=== PATIENT | female | born 1940 | race Caucasian/White ===

== ENCOUNTER → 2016-08-11 | Outpatient (CLI) | payer MEDICARE ==
--- NOTE | 2016-08-11 10:17 | ECHOS ---
DATE OF SERVICE: 08/11/2016 AGE: 76Y SEX: F HT: 62" WT: 108 lbs. Protocol Fercho: X Others: Stress Echo Stage: 3 Dur. of Exercise: 6:30 *Heart Rate Blood Pressure *Rest: 66 Rest: 148/86 * *Max. Achieved: 118 Maximum BP: 150/77 85% PMHR: 123 100% PMHR: 145 *METS: 6.8 INDICATIONS: Chest pain. MEDICATIONS: Simvastatin, Enalapril, Vicodin, omeprazole, aspirin. STRESS DATA: Pretesting physical examination showed heart rate of 66, pressure is 148/86 mmHg. Baseline EKG shows sinus rhythm with nonspecific changes in the inferolateral leads. The patient exercised on the treadmill according to Fercho protocol for a total of 6 minutes and 30 seconds and achieved 6.8 METs with max heart rate was 118 beats per minutes which is about 81% of maximum predicted heart rate. Maximum blood pressure was 150/77 mmHg. Clinically, the patient did not have any chest pain or discomfort, but she developed shortness of breath in response to exercise. The EKG showed about [address] segment changes, which likely represents the worsening of the baseline EKG changes. ECHOCARDIOGRAM: On echocardiogram images on parasternal long axis views, parasternal short axis view, apical 4 chamber view, and apical 2 chamber view were obtained at the baseline, at the peak of the heart rate as well as on recovery and the echocardiogram images did not show any evidence of wall motion abnormalities consistent with ischemia. CONCLUSION: 1. Average exercise capacity. 2. Mild EKG changes in response to exercise likely represent the worsening of the baseline EKG changes. 3. Normal echocardiogram in response to exercise.
== END | disposition home or self-care (01) ==
LOC: RADNMMAIN 09:08
PROVIDERS: ATTEND Family Medicine
DX: R94.31 Abnormal electrocardiogram [ECG] [EKG] (principal)
CPT/HCPCS: 93017; 93350

== ENCOUNTER → 2017-03-25 | Outpatient (CLI) | payer MEDICARE ==
--- NOTE | 2017-03-29 11:38 | MM ---
Reason for exam: screening (asymptomatic). Last mammogram was performed 1 year and 5 months ago. History: US discontinued breast bx RT of the right breast, November 08, 2014. Took estrogen for 10 years. Physical Findings: A clinical breast exam by your physician is recommended on an annual basis and results should be correlated with mammographic findings. MG 3D Screening Mammo W/Cad Bilateral CC and MLO view(s) were taken. Prior study comparison: October 30, 2015, bilateral MG 3d diag mammo w/cad [facility]. October 23, 2014, mammogram, performed at [facility]. There are scattered fibroglandular densities. Finding: There are typically benign round calcifications in the right breast. Asymmetric breast tissue in the right posterior breast, stable. There is no discrete abnormality. ASSESSMENT: Benign, BI-RAD 2 RECOMMENDATION: Routine screening mammogram of both breasts in 1 year.
== END | disposition home or self-care (01) ==
LOC: RADMAMWWP 13:53
PROVIDERS: ATTEND Family Medicine
DX: Z12.31 Encounter for screening mammogram for malignant neoplasm of breast (principal)
CPT/HCPCS: 77063; G0202

== ENCOUNTER → 2017-11-23 | Outpatient (CLI) | payer MEDICARE ==
[~2017-11-23] MED LIST: DENOSUMAB 60 MG/ML 1 ML SYRINGE SQ ONE
[2017-11-23 11:00] VITALS: BP 117/53; PULSE 61; RESP 16; TEMP 97.9
== END ==
LOC: PROCWHC3 10:41
PROVIDERS: ATTEND Nurse Practitioner Adult Health
DX: M81.0 Age-related osteoporosis without current pathological fracture (principal)
CPT/HCPCS: 96372; J0897

== ENCOUNTER → 2018-04-05 | Outpatient (CLI) | payer MEDICARE ==
--- NOTE | 2018-04-06 12:11 | ECHOF ---
Referral Reason:R79.89 other specified abnormal findings of lab results MEASUREMENTS -------- HEIGHT: 157.5 cm WEIGHT: 48.5 kg BP: RVIDd: 2.7 cm (< 3.3) IVSd: 1.2 cm (0.6 - 1.1) LVIDd: 4.2 cm (3.9 - 5.3) LVPWd: 1.2 cm (0.6 - 1.1) IVSs: 1.6 cm LVIDs: 2.8 cm LVPWs: 1.8 cm LAESV Index (A-L): 24.15 ml/m Ao Diam: 3.2 cm (2.0 - 3.7) AV Cusp: 2.2 cm (1.5 - 2.6) LA Diam: 4.1 cm (2.7 - 3.8) MV EXCURSION: 13.970 mm (> 18.000) MV EF SLOPE: 35 mm/s (70 - 150) EPSS: 1.3 cm MV E Mohan: 0.47 m/s MV DecT: 273 ms MV A Mohan: 0.93 m/s MV E/A Ratio: 0.50 RAP: 5.00 mmHg RVSP: 26.36 mmHg FINDINGS -------- Sinus rhythm. Resting bradycardia (HR<60bpm). This was a technically good study. The left ventricular size is normal. There is borderline concentric left ventricular hypertrophy. Overall left ventricular systolic function is low-normal with, an EF between 50 - 55 %. The right ventricle is normal in size and function. Normal LA size by volume 22+/-6 ml/m2. The right atrium is normal in size. Lumason used to rule out clot in LV apex. No clot seen. The aortic valve is trileaflet and appears structurally normal. There is trace mitral regurgitation. Mild tricuspid regurgitation present. The right ventricular systolic pressure, as measured by Doppl er, is 26.36mmHg. Moderate pulmonic regurgitation. The aortic root size is normal. Normal inferior vena cava with normal inspiratory collapse consistent with estimated right atrial pre ssure of 5 mmHg. The pericardium is normal. CONCLUSIONS -------- 1. Sinus rhythm. 2. Resting bradycardia (HR<60bpm). 3. This was a technically good study. 4. The left ventricular size is normal. 5. There is borderline concentric left ventricular hypertrophy. 6. Overall left ventricular systolic function is low-normal with, an EF between 50 - 55 %. 7. The right ventricle is normal in size and function. 8. Normal LA size by volume 22+/-6 ml/m2. 9. The right atrium is normal in size. 10. Lumason used to rule out clot in LV apex. No clot seen. 11. The aortic valve is trileaflet and appears structurally normal. 12. There is trace mitral regurgitation. 13. Mild tricuspid regurgitation present. 14. The right ventricular systolic pressure, as measured by Doppler, is 26.36mmHg. 15. Moderate pulmonic regurgitation. 16. The aortic root size is normal. 17. Normal inferior vena cava with normal inspiratory collapse consistent with estimated right atrial pressure of 5 mmHg. 18. The pericardium is normal. SCALE INSTALLER: Christina Navarrete RDCS
== END ==
LOC: RADECHMAIN 12:49
PROVIDERS: ATTEND Family Medicine
DX: I37.1 Nonrheumatic pulmonary valve insufficiency (principal)
CPT/HCPCS: C8929; Q9950; 93306

== ENCOUNTER → 2018-09-18 | Outpatient (CLI) | payer MEDICARE ==
--- NOTE | 2018-09-19 07:26 | US ---
EXAMINATION TYPE: US kidneys/renal and bladder DATE OF EXAM: 09/18/2018 COMPARISON: NONE CLINICAL HISTORY: R31.9 Hematuria. EXAM MEASUREMENTS: Right Kidney: 9.1 x 3.6 x 5.0 cm Left Kidney: 9.1 x 4.3 x 4.9 cm Right Kidney: cyst noted measuring 1.4 x 1.6 x 1.4cm, echogenic foci noted inferior, probable calculu s versus less likely calcified artery measuring 0.2 x 0.1 x 0.2cm Left Kidney: Superior pole obscured by bowel gas, mid echogenic foci noted probable calculi versus le ss likely calcified arteries Bladder: wnl Bilateral Jets seen: Yes There is no evidence for hydronephrosis at this point in time. No masses are identified. The urinary bladder is anechoic. Bilateral ureteral jets are seen. IMPRESSION: Punctate 2 mm probable bilateral nonobstructing renal calculi versus less likely small vessel arcuate artery atherosclerosis.
== END | disposition home or self-care (01) ==
LOC: RADUSWWP 15:36
PROVIDERS: ATTEND Family Medicine
DX: R31.9 Hematuria, unspecified (principal)
CPT/HCPCS: 76770

== ENCOUNTER 2018-09-27 06:18 | Day surgery (SDC) | payer MEDICARE ==
[2018-09-25 10:11] VITALS: BMI 19.5
[~2018-09-27 06:18] MED LIST changes: +ALPRAZolam 0.25 MG TAB PO PRN; +ALPRAZolam 0.5 MG TAB PO PRN; +ASPIRIN 325 MG TAB PO STA; +ATORVASTATIN 80 MG TAB PO STA; -DENOSUMAB 60 MG/ML 1 ML SYRINGE SQ ONE; +NITROGLYCERIN SL TABS 0.4 MG TAB SUBLINGUAL PRN; +SODIUM CHLORIDE 0.9% 1,000 ML in EMPTY BAG 1 BAG IV ONE
[2018-09-27 07:05] VITALS: RESP 16; TEMP 97.8
[2018-09-27] MEDS ORDERED: SODIUM CHLORIDE 0.9% 1,000 ML IV ONE (07:05)
[2018-09-27] MEDS ORDERED: fentaNYL (PF) 50 MCG/ML 2 ML AMP ONE (07:24)
[2018-09-27] MEDS ORDERED: LIDOCAINE 1% INJ 10MG/ML (20 ML MDV) ONE (07:24)
[2018-09-27] MEDS ORDERED: HEPARIN SODIUM 1,000 UN/ML (10ML VL) ONE (07:24)
[2018-09-27] MEDS ORDERED: VERAPAMIL 2.5 MG/ML 2 ML AMP ONE (07:25)
[2018-09-27] MEDS ORDERED: fentaNYL (PF) 50 MCG/ML 2 ML AMP IVP ONE (07:42)
[2018-09-27] MEDS ORDERED: LIDOCAINE 1% INJ 10MG/ML (20 ML MDV) SQ ONE (07:42)
[2018-09-27] MEDS ORDERED: VERAPAMIL SYRINGE (5 MG/10 ML) INTRAARTER ONE (07:46)
[2018-09-27] MEDS ORDERED: MIDAZOLAM 2 MG/2 ML VIAL IV ONE (07:52)
[2018-09-27] MEDS ORDERED: IOPAMIDOL-370 150ML BTL INJ ONE (07:57)
[2018-09-27] MEDS ORDERED: RX INFO: IV CONTRAST WAS GIVEN 1 EACH MISC MISCELLANE PRN (08:09)
[2018-09-27] MEDS ORDERED: ISOSORBIDE MONONITRATE ER 30 MG TAB.ER.24H PO PRN (08:10)
[2018-09-27] MEDS ORDERED: SODIUM CHLORIDE 0.9% 1,000 ML IV SCH (08:15)
--- NOTE | 2018-09-27 08:29 | CC ---
CARDIAC CATHETERIZATION REPORT Mrs. Brody is a 78-year-old female with known history of hypertension, hyperlipidemia, who has been followed on a regular basis by Dr. Bang, has been complaining of episode of chest discomfort as well as frequent ventricular ectopic activity. She was evaluated by Dr. Bang. Recommendations were made regarding cardiac catheterization. The procedure as well as the risks and the complications were discussed with the patient who is in full understanding and agreement. PROCEDURE: Patient was brought to the mechanical shop laborer in a fasting semi-sedated state after receiving fentanyl and Benadryl and achieving moderate conscious state. Using Xylocaine anesthesia in the Seldinger technique, a 6-Czech sheath was introduced in the right radial artery. Selective right and left coronary angiography was performed using 5- Czech 3.5 bend, right and left [place] catheters. Multiple views of the coronary artery including hemiaxial views were obtained. Following that 5-Czech tight pigtail catheter introduced in the left ventricle and a 30-degree HELLER view of the left ventricle was obtained. Following that, catheter and sheaths were removed. Hemostasis was obtained with deployment of a TR band. There was no immediate complication. Patient was returned to her room in stable condition. FINDINGS: LEFT MAIN: This is a large-sized vessel bifurcating left circumflex, left anterior descending artery. Left main coronary artery has no evidence of high-grade stenosis. LEFT ANTERIOR DESCENDING ARTERY: This is a large-sized vessel reaching to the apex recur tapers down distally gives rise to a large diagonal branch. The left anterior descending artery as well as branches have no evidence of obstructive coronary artery disease. LEFT CIRCUMFLEX: This is a small nondominant vessel giving rise to 2 obtuse marginal branches that have no evidence of high-grade stenosis RIGHT CORONARY ARTERY: This is a large dominant vessel bifurcating distally PDA and posterolateral segment and branches. The right coronary artery as well as branches have no evidence of obstructive coronary artery disease. LEFT VENTRICULOGRAM: The left ventriculogram was performed in 30-degree HELLER view and revealed normal left ventricular size and systolic function. Ejection fraction 60%. There was no significant mitral regurgitation. HEMODYNAMICS: There was no gradient across the aortic valve. The left ventricular end- diastolic pressure was 20 to 22 mmHg. CONCLUSION: 1. Normal coronary arteries. 2. Normal left ventricular size and systolic function. RECOMMENDATION: In view of finding anatomy, I recommend continue medical therapy with aggressive coronary risk modifications that have been initiated. Those findings and recommendations were discussed with the patient and her family and they are in full understanding and agreement. Duration of procedure is 14 minutes. MMODL / IJN: [id number] /
[2018-09-27] MEDS ORDERED: ENALAPRIL 2.5 MG PO SCH (09:00)
[2018-09-27] MEDS ORDERED: VITAMIN D3 PO SCH (09:00)
[2018-09-27] MEDS ORDERED: NON-FORMULARY DRUG (Omeprazole [Omeprazole] 20 MG) PO SCH (09:00)
[2018-09-27] MEDS ORDERED: CALCIUM CARBONATE PO SCH (09:00)
[2018-09-27] MEDS ORDERED: ATENOLOL 25 MG TAB PO SCH (09:00)
[2018-09-27 12:56] VITALS: BP 122/56; PULSE 58
== END 2018-09-27 13:31 | disposition home or self-care (01) ==
LOC: CATHCVL 06:18
PROVIDERS: ATTEND Internal Medicine Interventional Cardiology
DX: R07.89 Other chest pain (principal); I49.3 Ventricular premature depolarization; R94.39 Abnormal result of other cardiovascular function study; I10 Essential (primary) hypertension; E78.5 Hyperlipidemia, unspecified; Z79.82 Long term (current) use of aspirin; Z79.899 Other long term (current) drug therapy
CPT/HCPCS: 93458; C1894; C1769; J2250; J2001; J3010; J1644; Q9967

== ENCOUNTER → 2019-02-07 | Outpatient (CLI) | payer MEDICARE ==
[2019-02-07 23:15] LABS: African American GFR (CKD) 96.9 (60.0-200.0); Albumin 4.8 g/dL (3.80-4.90); Albumin/Globulin Ratio 2.09 (1.60-3.17); Anion Gap 10.8 mmol/L (4.00-12.00); BUN/Creat Ratio 25.71 Ratio (12.00-20.00); Calcium 9.8 mg/dL (8.7-10.3); Carbon Dioxide 28.2 mmol/L (21.6-31.8); Globulin 2.3 g/dL (1.6-3.3); Potassium 4.3 mmol/L (3.5-5.5); Total Bilirubin 1.4 mg/dL (0.3-1.2); Total Protein 7.1 g/dL (6.2-8.2)
== END ==
LOC: LABWHC1 17:06
PROVIDERS: ATTEND Internal Medicine Clinical Cardiac Electrophysiology
DX: R00.1 Bradycardia, unspecified (principal)
CPT/HCPCS: 36415; 80053; 84443

== ENCOUNTER → 2020-04-01 | Outpatient (CLI) | payer MEDICARE ==
--- NOTE | 2020-04-02 06:56 | US ---
EXAMINATION TYPE: US thyroid st tissue head/neck DATE OF EXAM: 04/01/2020 COMPARISON: 10/27/2015 CLINICAL HISTORY: E04.1 SINGLE THYROID NODULE. GLAND SIZE: Right Lobe: 4.8 x 1.6 cm cm Overall Parenchyma: heterogenous Left Lobe: 6.4 x 2.2 cm Overall Parenchyma: heterogeneous NODULES RIGHT: # of nodules measured on right: 3 1. 2.6 X 2.3 x 1.9 cm isoechoic solid nodule at the mid pole with well-defined margins. This nodul e is taller than wide and shows intranodular vascularity. Prior size: 2.6 x 2.0 x 1.8 cm 2. 1.1 X 0.7 x 1.1 cm hypoechoic mixed nodule at the mid pole with well-defined margins. This nodul e is wider than tall and shows no intranodular vascularity. 3. 0.8 X 0.5 x 0.6 cm anechoic cystic nodule at the upper pole with well-defined margins. This nod ule is wider than tall and shows no intranodular vascularity. Prior size: 0.8 x 0.5 x 0.6 cm Multiple subcentimeter nodules. LEFT: # of nodules measured on left: 1 1. 3.1 X 1.9 x 3.2 cm isoechoic solid nodule at the mid pole with well-defined margins. This nodul e is wider than tall and shows intranodular vascularity. Prior size: 3.4 x 1.7 x 2.3 cm ISTHMUS: # of nodules measured in the isthmus: 0 Bilateral neck scanned, no evidence of lymphadenopathy. IMPRESSION: Nonspecific thyroid nodularity. No significant interval change in left-sided solid thyroid nodule.
== END | disposition home or self-care (01) ==
LOC: RADUSWWP 15:26
PROVIDERS: ATTEND Family Medicine
DX: E04.1 Nontoxic single thyroid nodule (principal)
CPT/HCPCS: 76536

== ENCOUNTER → 2020-12-11 | Outpatient (CLI) | payer MEDICARE ==
--- NOTE | 2020-12-12 12:42 | MM ---
Reason for exam: screening (asymptomatic). Last mammogram was performed 3 years and 9 months ago. History: Patient is postmenopausal. US discontinued breast bx RT of the right breast, November 08, 2014. Took hormonal contraceptives for 10 years. Took estrogen for 10 years. Physical Findings: A clinical breast exam by your physician is recommended on an annual basis and results should be correlated with mammographic findings. MG 3D Screening Mammo W/Cad Bilateral CC and MLO view(s) were taken. Prior study comparison: March 25, 2017, bilateral MG 3d screening mammo w/cad. October 30, 2015, bilateral MG 3d diag mammo w/cad [facility]. There are scattered fibroglandular densities. ASSESSMENT: Negative, BI-RAD 1 RECOMMENDATION: Routine screening mammogram of both breasts in 1 year.
== END | disposition home or self-care (01) ==
LOC: RADMAMWWP 12:46
PROVIDERS: ATTEND Family Medicine
DX: Z12.31 Encounter for screening mammogram for malignant neoplasm of breast (principal); Z78.0 Asymptomatic menopausal state
CPT/HCPCS: 77063; 77067

== ENCOUNTER 2023-06-17 12:12 | Emergency (ER) | payer MEDICARE ==
[2023-06-17] MEDS ORDERED: SODIUM CHLORIDE 0.9% 1,000 ML IV STA (12:42)
--- NOTE | 2023-06-17 12:54 | ED ---
Arrhythmia/Palpitations HPI - General Stated Complaint: AFIB Time Seen by Provider: 06/17/23 12:45 - History of Present Illness Initial Comments: 83-year-old female with past medical history of hypertension, hyperlipidemia presents to the emergency department with chest pain and palpitations. States that the symptoms have been going on since this morning. She had intermittent palpitations with chest pressure. Does admit to some history of ectopy in the past but no history of A. fib. She follows with Dr. Galvan. She had a heart cath in 2019 which was negative. States that she is supposed to take carvedilol for blood pressure control however has been off of this medication for the past 2 weeks as a pharmacy has not had her prescription. Admits to recent upper respiratory infection symptoms. Has a lingering cough. No fevers. No numbne ss, tingling or weakness in her extremities. Denies any shortness of breath. Upon EMS evaluating the patient they found her to be in A. fib. Patient arrives to the ED and has already converted. No alleviating, precipitating or modifying factors - Related Data Home Medications Medication Instructions Recorded Confirmed Omeprazole 20 mg PO DAILY 09/25/18 06/17/23 Aspirin EC [Ecotrin Low Dose] 81 mg PO HS 06/17/23 06/17/23 Rosuvastatin [Crestor] 20 mg PO Q48H 06/17/23 06/17/23 Spironolactone [Aldactone] 25 mg PO DAILY 06/17/23 06/17/23 carvediloL [Coreg] 6.25 mg PO BID 06/17/23 06/17/23 Previous Rx's Medication Instructions Recorded Apixaban [Eliquis] 2.5 mg PO BID #60 tab 06/17/23 Metoprolol Tartrate 25 mg PO BID #60 tab 06/17/23 Allergies Allergy/AdvReac Type Severity Reaction Status Date / Time Iodinated Contrast Media Allergy Anaphylaxis Verified 06/17/23 13:45 [Iodinated Contrast Media - IV Dye] papaya Allergy Rash/Hives Verified 06/17/23 13:45 Review of Systems ROS Statement: Those systems with pertinent positive or pertinent negative responses have been documented in the HPI. ROS Other: All systems not noted in ROS Statement are negative. Past Medical History Past Medical History: Eye Disorder, GERD/Reflux, Hyperlipidemia, Hypertension, Thyroid Disorder Additional Past Medical History / Comment(s): "racing heart" recent GI symptoms ? FLU, Recent UTI, diverticular disorder, HX thyroid nodules. OSTEOPOROSIS. History of Any Multi-Drug Resistant Organisms: None Reported Past Surgical History: Hernia Repair, Hysterectomy, Orthopedic Surgery Additional Past Surgical History / Comment(s): left eye surgery for macular puckering, right inguinal hernia repair, left knee arthroscopy x3, thyroid biopsy Past Anesthesia/Blood Transfusion Reactions: No Reported Reaction Past Psychological History: Anxiety Additional Psychological History / Comment(s): r/t procedure Past Alcohol Use History: Rare Past Drug Use History: None Reported - Past Family History Mother Family Medical History: No Reported History General Exam General appearance: alert, in no apparent distress Head exam: Present: atraumatic, normocephalic, normal inspection Eye exam: Present: normal appearance, PERRL, EOMI. Absent: scleral icterus, conjunctival injection, periorbital swelling ENT exam: Present: normal exam, mucous membranes moist Neck exam: Present: normal inspection. Absent: tenderness, meningismus, lymphadenopathy Respiratory exam: Present: normal lung sounds bilaterally. Absent: respiratory distress, wheezes, rales, rhonchi, stridor Cardiovascular Exam: Present: regular rate, normal rhythm, normal heart sounds. Absent: systolic murmur, diastolic murmur, rubs, gallop, clicks GI/Abdominal exam: Present: soft, normal bowel sounds. Absent: distended, tenderness, guarding, rebound, rigid Extremities exam: Present: normal inspection, full ROM, normal capillary refill. Absent: tenderness, pedal edema, joint swelling, calf tenderness Back exam: Present: normal inspection Neurological exam: Present: alert, oriented X3, CN II-XII intact Psychiatric exam: Present: normal affect, normal mood Skin exam: Present: warm, dry, intact, normal color. Absent: rash Course Vital Signs 06/17/23 06/17/23 12:40 16:11 Temperature 98.7 F Pulse Rate 79 64 Respiratory 18 19 Rate Blood Pressure 129/70 150/75 O2 Sat by Pulse 99 99 Oximetry Medical Decision Making - Medical Decision Making Was pt. sent in by a medical professional or institution (, PA, MAINTENANCE PLUMBER, urgent care, hospital, or mcc...) When possible be specific @ -No Did you speak to anyone other than the patient for history (EMS, parent, family, police, friend...)? What history was obtained from this source @ -EMS Did you review nursing and triage notes (agree or disagree)? Why? @ -I reviewed and agree with nursing and triage notes Were old charts reviewed (outside hosp., previous admission, EMS record, old EKG, old radiological studies, urgent care reports/EKG's, mcc records)? Report findings @ -No old charts were reviewed Differential Diagnosis (chest pain, altered mental status, abdominal pain women, abdominal pain men, vaginal bleeding, weakness, fever, dyspnea, syncope, headache, dizziness, GI bleed, back pain, seizure, CVA, palpatations, mental health, musculoskeletal)? @ -Differential Palpitations Ventricular arrhythmias, atrial arrhythmias, myocardial infarction, anemia, thyrotoxicosis, electrolyte imbalance, hypokalemia, pulmonary embolism, pulmonary disease, drugs, alcohol, anxiety, stress.... This is not meant to be an all-inclusive list. EKG interpreted by me (3pts min.). @ -Yes and demonstrates sinus rhythm with a rate of 65. AZ interval 178. QRS 87. QTC of 437. No acute ST segment elevations. ST depression V3-V5 X-rays interpreted by me (1pt min.). @ -Yes and demonstrates no acute intrathoracic process CT interpreted by me (1pt min.). @ -None done U/S interpreted by me (1pt. min.). @ -None done What testing was considered but not performed or refused? (CT, X-rays, U/S, labs)? Why? @ -None What meds were considered but not given or refused? Why? @ -None Did you discuss the management of the patient with other professionals (professionals i.e. , PA, MAINTENANCE PLUMBER, lab, RT, psych nurse, high school social science teacher, gunner mate, teacher, chief medical officer, case work aide)? Give summary @ -Spoke with Dr. Nair. States that the patient may continue carvedilol or be switched to metoprolol. He recommends she also starts Eliquis due to Brown vasc score of 4 Was smoking cessation discussed for >3mins.? @ -No Was critical care preformed (if so, how long)? @ -No Were there social determinants of health that impacted care today? How? (Homelessness, low income, unemployed, alcoholism, drug addiction, transportation, low edu. Level, literacy, decrease access to med. care, mcc, rehab)? @ -No Was there de-escalation of care discussed even if they declined (Discuss DNR or withdrawal of care, Hospice)? DNR status @ -No What co-morbidities impacted this encounter? (DM, HTN, Smoking, COPD, CAD, Cancer, CVA, ARF, Chemo, Hep., AIDS, mental health diagnosis, sleep apnea, morbid obesity)? @ -Ectopy- PVCs Was patient admitted / discharged? Hospital course, mention meds given and route, prescriptions, significant lab abnormalities, going to OR and other pertinent info. @ -Discharge. Upon arrival patient was placed into room 9. Thorough history and physical exam was performed. Patient has already converted out of A. fib. Laboratory studies are obtained. Chest x-ray was performed. Patient is adamant that she wants to go home. I did call and speak with Dr. Nair. States that the patient should be anticoagulated due to her new onset A. fib. She will also be placed on Toprol as she has difficulty obtaining her carvedilol. Patient is to follow-up with the home health [facility] within 2 weeks. Return for any new or wo rsening symptoms. Patient agreeable with plan and she was discharged in stable condition Undiagnosed new problem with uncertain prognosis? @ -No Drug Therapy requiring intensive monitoring for toxicity (Heparin, Nitro, Insulin, Cardizem)? @ -No Were any procedures done? @ -No Diagnosis/symptom? @ - New onset A. fib with RVR Acute, or Chronic, or Acute on Chronic? @ -Acute Uncomplicated (without systemic symptoms) or Complicated (systemic symptoms)? @ -Complicated Side effects of treatment? @ -No Exacerbation, Progression, or Severe Exacerbation? @ -No Poses a threat to life or bodily function? How? (Chest pain, [place], [place], pneumonia, PE, COPD, DKA, ARF, appy, cholecystitis, CVA, Diverticulitis, Homicidal, Suicidal, threat to staff... and all critical care pts) @ -No - Lab Data Result diagrams: 06/17/23 13:02 06/17/23 13:02 Lab Results 06/17/23 06/17/23 06/17/23 Range/Units 13:02 13:02 13:02 WBC 7.5 (3.8-10.6) k/uL RBC 4.28 (3.80-5.40) m/uL Hgb 13.5 (11.4-16.0) gm/dL Hct 40.3 (34.0-46.0) % MCV 94.0 (80.0-100.0) fL MCH 31.5 (25.0-35.0) pg MCHC 33.5 (31.0-37.0) g/dL RDW 12.2 (11.5-15.5) % Plt Count 226 (150-450) k/uL MPV 7.4 Neutrophils % 80 % Lymphocytes % 13 % Monocytes % 4 % Eosinophils % 2 % Basophils % 1 % Neutrophils # 6.0 (1.3-7.7) k/uL Lymphocytes # 1.0 (1.0-4.8) k/uL Monocytes # 0.3 (0-1.0) k/uL Eosinophils # 0.2 (0-0.7) k/uL Basophils # 0.1 (0-0.2) k/uL PT 10.7 (10.0-12.5) sec INR 1.0 (<1.2) APTT 21.1 L (22.0-30.0) sec Sodium 143 (137-145) mmol/L Potassium 4.3 (3.5-5.1) mmol/L Chloride 107 (98-107) mmol/L Carbon Dioxide 24 (22-30) mmol/L Anion Gap 12 mmol/L BUN 19 H (7-17) mg/dL Creatinine 0.67 (0.52-1.04) mg/dL Est GFR (CKD-EPI)AfAm >90 (>60 ml/min/1.73 sqM) Est GFR (CKD-EPI)NonAf 82 (>60 ml/min/1.73 sqM) Glucose 91 (74-99) mg/dL Calcium 9.3 (8.4-10.2) mg/dL Magnesium 2.2 (1.6-2.3) mg/dL Total Bilirubin 1.4 H (0.2-1.3) mg/dL AST 34 (14-36) U/L ALT 22 (4-34) U/L Alkaline Phosphatase 91 (38-126) U/L Troponin I (0.000-0.034) ng/mL Total Protein 6.8 (6.3-8.2) g/dL Albumin 4.0 (3.5-5.0) g/dL TSH 0.091 L (0.465-4.680) mIU/L Free T4 1.54 (0.78-2.19) ng/dL 06/17/23 Range/Units 13:02 WBC (3.8-10.6) k/uL RBC (3.80-5.40) m/uL Hgb (11.4-16.0) gm/dL Hct (34.0-46.0) % MCV (80.0-100.0) fL MCH (25.0-35.0) pg MCHC (31.0-37.0) g/dL RDW (11.5-15.5) % Plt Count (150-450) k/uL MPV Neutrophils % % Lymphocytes % % Monocytes % % Eosinophils % % Basophils % % Neutrophils # (1.3-7.7) k/uL Lymphocytes # (1.0-4.8) k/uL Monocytes # (0-1.0) k/uL Eosinophils # (0-0.7) k/uL Basophils # (0-0.2) k/uL PT (10.0-12.5) sec INR (<1.2) APTT (22.0-30.0) sec Sodium (137-145) mmol/L Potassium (3.5-5.1) mmol/L Chloride (98-107) mmol/L Carbon Dioxide (22-30) mmol/L Anion Gap mmol/L BUN (7-17) mg/dL Creatinine (0.52-1.04) mg/dL Est GFR (CKD-EPI)AfAm (>60 ml/min/1.73 sqM) Est GFR (CKD-EPI)NonAf (>60 ml/min/1.73 sqM) Glucose (74-99) mg/dL Calcium (8.4-10.2) mg/dL Magnesium (1.6-2.3) mg/dL Total Bilirubin (0.2-1.3) mg/dL AST (14-36) U/L ALT (4-34) U/L Alkaline Phosphatase (38-126) U/L Troponin I <0.012 (0.000-0.034) ng/mL Total Protein (6.3-8.2) g/dL Albumin (3.5-5.0) g/dL TSH (0.465-4.680) mIU/L Free T4 (0.78-2.19) ng/dL Disposition Clinical Impression: New onset a-fib Disposition: HOME SELF-CARE Condition: Stable Instructions (If sedation given, give patient instructions): A-fib (Atrial Fibrillation) (ED) Additional Instructions: Start taking the metoprolol and Eliquis tomorrow morning. Follow-up with Dr. Galvan within the next 2 weeks. Return for any new or worsening symptoms Prescriptions: Apixaban [Eliquis] 2.5 mg PO BID #60 tab Metoprolol Tartrate 25 mg PO BID #60 tab Is patient prescribed a controlled substance at d/c from ED?: No Referrals: Adolph Sims MD [Primary Care Provider] - 1-2 days Jaspal Bang MD [STAFF PHYSICIAN] - 1-2 days Time of Disposition: 15:49
[2023-06-17 13:24] LABS: Basophils # (A) 0.1 k/uL (0-0.2); Basophils % (A) 1 %; Eosinophils # (A) 0.2 k/uL (0-0.7); Eosinophils % (A) 2 %; HCT 40.3 % (34.0-46.0); HGB 13.5 gm/dL (11.4-16.0); Lymphocytes % (A) 13 %; MCH 31.5 pg (25.0-35.0); MCHC 33.5 g/dL (31.0-37.0); Mean Platelet Volume 7.4; Monocytes # (A) 0.3 k/uL (0-1.0); Monocytes % (A) 4 %; Neutrophils % (A) 80 %; Platelet Count 226 k/uL (150-450); RBC 4.28 m/uL (3.80-5.40); RDW 12.2 % (11.5-15.5); WBC 7.5 k/uL (3.8-10.6)
--- NOTE | 2023-06-17 13:24 | XR ---
EXAMINATION TYPE: XR chest 2V DATE OF EXAM: 06/17/2023 COMPARISON: NONE HISTORY: Palpitations. TECHNIQUE: Frontal and lateral views of the chest are obtained. FINDINGS: Lungs are clear. The cardiac silhouette is moderately enlarged and the pulmonary vessels a re within normal limits. IMPRESSION: Cardiomegaly with no acute cardiopulmonary process.
[2023-06-17 13:26] VITALS: TEMP 98.7
[2023-06-17 13:27] LABS: ALT 22 U/L (4-34); AST 34 U/L (14-36); African American GFR (CKD) >90 (>60 ml/min/1.73 sqM); Alkaline Phosphatase 91 U/L (38-126); Anion Gap 12 mmol/L; Blood Urea Nitrogen 19 mg/dL (7-17); Calcium 9.3 mg/dL (8.4-10.2); Carbon Dioxide 24 mmol/L (22-30); Chloride 107 mmol/L (98-107); Glucose 91 mg/dL (74-99); Magnesium 2.2 mg/dL (1.6-2.3); Non-African American GFR(CKD) 82 (>60 ml/min/1.73 sqM); Potassium 4.3 mmol/L (3.5-5.1); Sodium 143 mmol/L (137-145); Total Bilirubin 1.4 mg/dL (0.2-1.3); Total Protein 6.8 g/dL (6.3-8.2)
[2023-06-17 13:36] LABS: Prothrombin Time 10.7 sec (10.0-12.5)
[2023-06-17 13:49] LABS: Partial Thromboplastin Time 21.1 sec (22.0-30.0)
[2023-06-17 14:50] LABS: T4, Free (Free Thyroxine) 1.54 ng/dL (0.78-2.19)
[2023-06-17] MEDS ORDERED: METOPROLOL TARTRATE 25 MG TAB PO STA (15:40)
[2023-06-17] MEDS ORDERED: APIXABAN 5 MG TAB PO STA (15:40)
[2023-06-17 16:16] VITALS: BP 150/75; PULSE 64; RESP 19
== END 2023-06-17 16:22 | disposition home or self-care (01) ==
LOC: EC 12:12
DX: I48.91 Unspecified atrial fibrillation (principal); I10 Essential (primary) hypertension; K21.9 Gastro-esophageal reflux disease without esophagitis; F41.9 Anxiety disorder, unspecified; Z79.82 Long term (current) use of aspirin; Z79.899 Other long term (current) drug therapy; Z91.041 Radiographic dye allergy status; Z91.018 Allergy to other foods
CPT/HCPCS: 36415; 71046; 80053; 83735; 84439; 84443; 84484; 85025; 85610; 85730; 96360; 99285

== ENCOUNTER 2024-05-15 15:54 | Emergency (ER) | payer MEDICARE ==
--- NOTE | 2024-05-15 16:01 | ED ---
Fall HPI - General Chief Complaint: Fall Stated Complaint: Fall Time Seen by Provider: 05/15/24 15:55 Source: patient, RN notes reviewed, old records reviewed Mode of arrival: EMS Limitations: no limitations - History of Present Illness Initial Comments: This is an 84-year-old female to ER for a fall, patient did fall down a flight of stairs a few steps at a time, she was on blood thinners a week ago but stopped secondary to procedure coming up tomorrow. Patient does complain of a minor headache little bit of bleeding is noted for the occiput. 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 Witnessed: yes, by family, yes, by bystander Place Fall Occurred: home Loss of Consciousness: none Prolonged Down Time?: no Symptoms Prior to Fall: none Location: head Severity: severe Context: tripped/slipped Associated Symptoms: denies - Related Data Home Medications Medication Instructions Recorded Confirmed Omeprazole 20 mg PO DAILY 09/25/18 06/17/23 Aspirin EC [Ecotrin Low Dose] 81 mg PO HS 06/17/23 06/17/23 Rosuvastatin [Crestor] 20 mg PO Q48H 06/17/23 06/17/23 Spironolactone [Aldactone] 25 mg PO DAILY 06/17/23 06/17/23 carvediloL [Coreg] 6.25 mg PO BID 06/17/23 06/17/23 Previous Rx's Medication Instructions Recorded Apixaban [Eliquis] 2.5 mg PO BID #60 tab 06/17/23 Metoprolol Tartrate 25 mg PO BID #60 tab 06/17/23 Allergies Allergy/AdvReac Type Severity Reaction Status Date / Time Iodinated Contrast Media Allergy Anaphylaxis Verified 06/17/23 13:45 [Iodinated Contrast Media - IV Dye] papaya Allergy Rash/Hives Verified 06/17/23 13:45 Review of Systems ROS Statement: Those systems with pertinent positive or pertinent negative responses have been documented in the HPI. ROS Other: All systems not noted in ROS Statement are negative. Past Medical History Past Medical History: Eye Disorder, GERD/Reflux, Hyperlipidemia, Hypertension, Thyroid Disorder Additional Past Medical History / Comment(s): "racing heart" recent GI symptoms ? FLU, Recent UTI, diverticular disorder, HX thyroid nodules. OSTEOPOROSIS. History of Any Multi-Drug Resistant Organisms: None Reported Past Surgical History: Hernia Repair, Hysterectomy, Orthopedic Surgery Additional Past Surgical History / Comment(s): left eye surgery for macular puckering, right inguinal hernia repair, left knee arthroscopy x3, thyroid biopsy Past Anesthesia/Blood Transfusion Reactions: No Reported Reaction Past Psychological History: Anxiety Past Alcohol Use History: Rare Past Drug Use History: None Reported - Past Family History Mother Family Medical History: No Reported History General Exam Limitations: no limitations General appearance: alert, in no apparent distress Head exam: Present: atraumatic, normocephalic, normal inspection Eye exam: Present: normal appearance, PERRL, EOMI. Absent: scleral icterus, con junctival injection, periorbital swelling ENT exam: Present: normal exam, mucous membranes moist Neck exam: Present: normal inspection. Absent: tenderness, meningismus, lymphadenopathy Respiratory exam: Present: normal lung sounds bilaterally. Absent: respiratory distress, wheezes, rales, rhonchi, stridor Cardiovascular Exam: Present: regular rate, normal rhythm, normal heart sounds. Absent: systolic murmur, diastolic murmur, rubs, gallop, clicks GI/Abdominal exam: Present: soft, normal bowel sounds. Absent: distended, tenderness, guarding, rebound, rigid Extremities exam: Present: normal inspection, full ROM, normal capillary refill. Absent: tenderness, pedal edema, joint swelling, calf tenderness Back exam: Present: normal inspection Neurological exam: Present: alert, oriented X3, CN II-XII intact Psychiatric exam: Present: normal affect, normal mood Skin exam: Present: warm, dry, intact, normal color. Absent: rash Course Vital Signs 05/15/24 05/15/24 05/15/24 15:55 17:00 18:00 Temperature 97.7 F 98.2 F 98 F Pulse Rate 63 82 79 Respiratory 16 18 18 Rate Blood Pressure 180/89 181/79 172/77 O2 Sat by Pulse 95 96 96 Oximetry 05/15/24 18:52 Temperature 98.1 F Pulse Rate 77 Respiratory 18 Rate Blood Pressure 161/76 O2 Sat by Pulse 97 Oximetry - Reevaluation(s) Reevaluation #1: 05/15/24 17:13 Medical records reviewed Reevaluation #2: 05/15/24 17:13 Patient's pain is improved Reevaluation #3: 05/15/24 17:14 Patient informed of results and questions answered Reevaluation #4: Was pt. sent in by a medical professional or institution (, [facility], HOUSE MOVING SUPERVISOR, urgent care, hospital, or group home...) When possible be specific @ -no Did you speak to anyone other than the patient for history (EMS, parent, family, police, friend...)? What history was obtained from this source @ -no Did you review nursing and triage notes (agree or disagree)? Why? @ -agree Are old charts reviewed (outside hosp., previous admission, EMS record, old EKG, old radiological studies, urgent care reports/EKG's, group home records)? R eport findings @ -yes Differential Diagnosis (chest pain, altered mental status, abdominal pain women, abdominal pain men, vaginal bleeding, weakness, fever, dyspnea, syncope, headache, dizziness, GI bleed, back pain, seizure, CVA, palpatations, mental health, musculoskeletal)? @ -prior EKG interpreted by me (3pts min.). @ -yes X-rays interpreted by me (1pt min.). @ -yes negative for acute disease CT interpreted by me (1pt min.). @ -Yes negative for acute disease U/S interpreted by me (1pt. min.). @ -no What testing was considered but not performed or refused? (CT, X-rays, U/S, labs)? Why? @ -none What meds were considered but not given or refused? Why? @ -none Did you discuss the management of the patient with other professionals (professionals i.e. SHELIA Joel, HOUSE MOVING SUPERVISOR, lab, RT, psych nurse, social worker assistant, supervisor lead burning, teacher, ship officer, social work case manager)? Give summary @ -no Was smoking cessation discussed for >3mins.? @ -no Was critical care preformed (if so, how long)? @ -no Were there social determinants of health that impacted care today? How? (Homelessness, low income, unemployed, alcoholism, drug addiction, transportation, low edu. Level, literacy, decrease access to med. care, residential, rehab)? @ -none Was there de-escalation of care discussed even if they declined (Discuss DNR or withdrawal of care, Hospice)? DNR status @ -no What co-morbidities impacted this encounter? (DM, HTN, Smoking, COPD, CAD, Cancer, CVA, ARF, Chemo, Hep., AIDS, mental health diagnosis, sleep apnea, morbid obesity)? @ -none Was patient admitted / discharged? Hospital course, mention meds given and route, prescriptions, significant lab abnormalities, going to OR and other pertinent info. @ - 84 female to ER from a fall down a flight of stairs. Patient no traumatic injury from this fall mild abrasion to the posterior occiput not requiring lillie patient can be discharged home Discharge Undiagnosed new problem with uncertain prognosis? @ -no Drug Therapy requiring intensive monitoring for toxicity (Heparin, Nitro, Insulin, Cardizem)? @ -no Were any procedures done? @ -no Diagnosis/symptom? @ -Fall weakness Acute, or Chronic, or Acute on Chronic? @ -Acute Uncomplicated (without systemic symptoms) or Complicated (systemic symptoms)? @ -Complicated Side effects of treatment? @ -no Exacerbation, Progression, or Severe Exacerbation? @ -exacerbation Poses a threat to life or bodily function? How? (Chest pain, [place], [place], pneumonia, PE, COPD, DKA, ARF, appy, cholecystitis, CVA, Diverticulitis, Homicidal, Suicidal, threat to staff... and all critical care pts) @ -yes extremes of age Medical Decision Making - Medical Decision Making 84 female to ER from a fall down a flight of stairs. Patient no traumatic injury from this fall mild abrasion to the posterior occiput not requiring lillie patient can be discharged home - Lab Data Result diagrams: 05/15/24 16:01 05/15/24 16:01 Lab Results 05/15/24 05/15/24 05/15/24 Range/Units 16:01 16:01 16:31 WBC 6.4 (3.8-10.6) k/uL RBC 4.39 (3.80-5.40) m/uL Hgb 13.7 (11.4-16.0) gm/dL Hct 41.8 (34.0-46.0) % MCV 95.2 (80.0-100.0) fL MCH 31.2 (25.0-35.0) pg MCHC 32.8 (31.0-37.0) g/dL RDW 12.6 (11.5-15.5) % Plt Count 204 (150-450) k/uL MPV 7.0 Neutrophils % 66 % Lymphocytes % 21 % Monocytes % 7 % Eosinophils % 4 % Basophils % 1 % Neutrophils # 4.2 (1.3-7.7) k/uL Lymphocytes # 1.4 (1.0-4.8) k/uL Monocytes # 0.4 (0-1.0) k/uL Eosinophils # 0.2 (0-0.7) k/uL Basophils # 0.0 (0-0.2) k/uL PT 10.9 (10.0-12.5) sec INR 1.0 (<1.2) APTT 24.7 (22.0-30.0) sec Sodium 138 (137-145) mmol/L Potassium 4.5 (3.5-5.1) mmol/L Chloride 103 (98-107) mmol/L Carbon Dioxide 28 (22-30) mmol/L Anion Gap 7 mmol/L BUN 25 H (7-17) mg/dL Creatinine 0.82 (0.52-1.04) mg/dL Est GFR (CKD-EPI)AfAm 77 (>60 ml/min/1.73 sqM) Est GFR (CKD-EPI)NonAf 66 (>60 ml/min/1.73 sqM) Glucose 144 H (74-99) mg/dL Calcium 9.2 (8.4-10.2) mg/dL Total Bilirubin 1.3 (0.2-1.3) mg/dL AST 33 (14-36) U/L ALT 25 (4-34) U/L Alkaline Phosphatase 73 (38-126) U/L Total Protein 6.5 (6.3-8.2) g/dL Albumin 4.1 (3.5-5.0) g/dL Serum Alcohol <10 mg/dL - EKG Data -: EKG Interpreted by Me (EKG is sinus bradycardia 58 VT 173 QRS 103 QTc 429) - Radiology Data Radiology results: report reviewed (CT brain C-spine chest and pelvis x-ray negative for acute disease), image reviewed Disposition Clinical Impression: Fall, Head injury Disposition: HOME SELF-CARE Condition: Good Instructions (If sedation given, give patient instructions): Fall Prevention for Older Adults (ED) Is patient prescribed a controlled substance at d/c from ED?: No Referrals: Adolph Sims MD [Primary Care Provider] - 1-2 days Time of Disposition: 17:10
[2024-05-15 16:17] LABS: Basophils % (A) 1 %; Eosinophils # (A) 0.2 k/uL (0-0.7); Eosinophils % (A) 4 %; HCT 41.8 % (34.0-46.0); HGB 13.7 gm/dL (11.4-16.0); Lymphocytes # (A) 1.4 k/uL (1.0-4.8); Lymphocytes % (A) 21 %; MCH 31.2 pg (25.0-35.0); MCHC 32.8 g/dL (31.0-37.0); MCV 95.2 fL (80.0-100.0); Monocytes # (A) 0.4 k/uL (0-1.0); Monocytes % (A) 7 %; Neutrophils # (A) 4.2 k/uL (1.3-7.7); Neutrophils % (A) 66 %; Platelet Count 204 k/uL (150-450); RBC 4.39 m/uL (3.80-5.40); RDW 12.6 % (11.5-15.5); WBC 6.4 k/uL (3.8-10.6)
[2024-05-15 16:29] LABS: ALT 25 U/L (4-34); AST 33 U/L (14-36); African American GFR (CKD) 77 (>60 ml/min/1.73 sqM); Albumin 4.1 g/dL (3.5-5.0); Alcohol <10 mg/dL; Alkaline Phosphatase 73 U/L (38-126); Anion Gap 7 mmol/L; Blood Urea Nitrogen 25 mg/dL (7-17); Calcium 9.2 mg/dL (8.4-10.2); Carbon Dioxide 28 mmol/L (22-30); Chloride 103 mmol/L (98-107); Glucose 144 mg/dL (74-99); Non-African American GFR(CKD) 66 (>60 ml/min/1.73 sqM); Potassium 4.5 mmol/L (3.5-5.1); Sodium 138 mmol/L (137-145); Total Bilirubin 1.3 mg/dL (0.2-1.3); Total Protein 6.5 g/dL (6.3-8.2)
--- NOTE | 2024-05-15 16:38 | CT ---
EXAMINATION TYPE: CT brain cspine wo con DATE OF EXAM: 05/15/2024 4:20 PM COMPARISON: None. CLINICAL INDICATION: Female, 84 years old with history of fall; fell down 15 stairs/ on thinners TECHNIQUE: Brain: Multiple axial CT images of the brain were obtained without IV contrast. Cspine: Axial CT images from the skull base to the inferior aspect of T2 we obtained without intraven ous contrast. Coronal and sagittal reformatted images were also reviewed. . CT DLP: 1198.3 mGycm, Automated exposure control for dose reduction was used. FINDINGS: Brain: Extra-axial spaces: No abnormal extra-axial fluid collections. Ventricular system: Within normal limits Cerebral parenchyma: No acute intraparenchymal hemorrhage or mass effect. The carrera-white junction is well differentiated. Cerebellum: Unremarkable. Mass effect: No evidence of midline shift. Intracranial vasculature: unremarkable Soft tissues: Left posterior scalp hematoma/edema. Calvarium/osseous structures: No depressed skull fracture. Paranasal sinuses and mastoid air cells: Clear. Visualized orbits: Bilaterally aphakia. Cervical spine: Fracture: None. Osseous structures: Multilevel degenerative disc disease changes with endplate spurring and disc oste ophyte complex's. Nonfusion of the posterior arch of C1. Vertebral alignment: Within normal limits. Spinal canal/Neural Foramina: Disc osteophyte complexes at C4-C5 and C5-C6. With at least mild spinal canal stenosis. No evidence for significant neural foraminal stenosis. Neck soft tissues: Prevertebral soft tissues are within normal limits. Other: The airway is patent. The lung apices are clear. Atherosclerosis of the arterial vasculature. Enlarged thyroid gland with multiple nodules. IMPRESSION: 1. No acute intracranial process. 2. Posterior scalp edema/hematoma without evidence of fracture. 3. No evidence of cervical spine fracture. 4. Mild to moderate multilevel degenerative disc disease. 5. Enlarged thyroid gland with multiple thyroid nodules as seen on prior ultrasound. [facility], , 05/15/2024 4:36 PM
[2024-05-15] MEDS: SODIUM CHLORIDE 0.9% 1,000 ML IV ONE (16:46)
[2024-05-15 16:51] LABS: Partial Thromboplastin Time 24.7 sec (22.0-30.0); Prothrombin Time 10.9 sec (10.0-12.5)
--- NOTE | 2024-05-15 17:35 | XR ---
EXAMINATION TYPE: XR chest 1V DATE OF EXAM: 05/15/2024 5:22 PM COMPARISON: Chest radiographs from 06/17/2023. CLINICAL INDICATION: Female, 84 years old with history of fall; [facility] TECHNIQUE: XR chest 1V Frontal view of the chest. FINDINGS: Lungs/Pleura: There is no evidence of pleural effusion, focal consolidation, or pneumothorax. Pulmonary vascularity: Pulmonary vascular congestion. Heart/mediastinum: Cardiomediastinal silhouette is enlarged. A loop recorder projects over the left t horax over the heart. Musculoskeletal: No acute osseous pathology. IMPRESSION: Cardiomegaly and mild pulmonary vascular congestion. Correlate with BNP for congestive heart failure. [facility], , 05/15/2024 5:33 PM
--- NOTE | 2024-05-15 17:36 | XR ---
EXAMINATION TYPE: XR pelvis AP view DATE OF EXAM: 05/15/2024 5:22 PM COMPARISON: None CLINICAL INDICATION: Female, 84 years old with history of fall; [facility] TECHNIQUE: XR pelvis AP view, examined in a single projection. FINDINGS: Large amount of stool throughout the abdomen. There is no evidence of fracture or dislocati on. There is no soft tissue abnormality. No abnormal calcifications are present. The spine appears i ntact. The hips appear intact. No significant degeneration. IMPRESSION: No acute osseous pathology. Mild degeneration changes of the hip. [facility], , 05/15/2024 5:33 PM
[2024-05-15 18:03] VITALS: RESP 18
[2024-05-15] MEDS: MORPHINE SULFATE 4 MG/ML SYRINGE IV STA (18:11)
[2024-05-15] MEDS ORDERED: ACET/COD 300 MG/30 MG STARTER PACK 6 TAB BTL PO STA (18:52)
[2024-05-15] MEDS ORDERED: traMADol 50 MG STARTER PACK 3 TAB BTL PO STA (18:52)
[2024-05-15 18:54] VITALS: BP 161/76; PULSE 77; TEMP 98.1
== END 2024-05-15 18:54 | disposition home or self-care (01) ==
LOC: EC 15:54
DX: S09.90XA Unspecified injury of head, initial encounter (principal); Z91.041 Radiographic dye allergy status; Z91.018 Allergy to other foods; W10.9XXA Fall (on) (from) unspecified stairs and steps, initial encounter
CPT/HCPCS: 36415; 80053; 85025; 85610; 85730; 72170; 71045; 72125; 70450; 99285; 96374; 96361; G0480; J2270; 80320

== ENCOUNTER → 2024-12-19 | Outpatient (CLI) | payer MEDICARE ==
--- NOTE | 2024-12-22 08:06 | CT ---
EXAMINATION TYPE: CT abdomen pelvis wo con DATE OF EXAM: 12/19/2024 10:32 AM COMPARISON: None. CLINICAL INDICATION: Female, 84 years old with history of R31.29 OTHER MICROSCOPIC HEMATURIA, Microsc opic hematuria TECHNIQUE: Axial images were obtained from above the diaphragm to the pubic rami in the axial plane a t 5 mm thick sections. Reconstructed images are reviewed on the computer in the coronal plane. CONTRAST: mL of . Study performed without Oral Contrast DLP: 403 mGycm, Automated exposure control for dose reduction was used. FINDINGS: Limited CT sections are obtained the lung bases. The lung bases are clear. CT ABDOMEN: Liver: Normal Spleen: Normal Pancreas: Normal Adrenal glands: The adrenal glands are normal. Gallbladder: Normal Kidneys: There is a hyperdense area within the posterior lateral right mid kidney measuring 2.5 cm. T his may be a complex cyst present previously and is enlarged over the interval. This previously measu red 1.7 cm. This measures 48 Hounsfield, previously 64 Hounsfield units. No hydronephrosis is present . No additional cysts are present. No renal stones are evident. Aorta: Vascular calcification is within the aorta. Inferior vena cava: Normal. CT PELVIS: Loops of bowel within the abdomen and pelvis are normal. Scattered diverticula through the colon. Small bowel loops appear air filled Appendix: Normal as visualized Urinary bladder: Decompressed with limited evaluation. Genitourinary structures: Uterus and ovaries are not identified. Osseous structures: No suspicious lytic or sclerotic lesions. 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 There is a grade 1 spondylolisthesis of L4 and L5 with endplate thomas es and loss of disc height. There is narrowing of disc height at T11-T12 IMPRESSION: 1. Hyperdense lesion within the right kidney has enlarged over the interval. Density has diminished over the interval. Consider reevaluation by ultrasound. 2. Diverticulosis without acute diverticulitis. 3. Large cyst appearance to the sacrum, stable [facility], , 12/22/2024 8:03 AM
== END | disposition home or self-care (01) ==
LOC: RADCTMAIN 10:00
PROVIDERS: ATTEND Family Medicine
DX: N28.89 Other specified disorders of kidney and ureter (principal); N28.1 Cyst of kidney, acquired; R31.29 Other microscopic hematuria; K57.30 Diverticulosis of large intestine without perforation or abscess without bleeding
CPT/HCPCS: 74176